=== PATIENT | male | born 1965 | race Caucasian/White ===

== ENCOUNTER 2017-11-06 05:04 | Emergency (ER) | payer SELFPAY ==
[~2017-11-06] VITALS: Ht 180.3 cm; Wt 104.5 kg
[2017-11-06 05:12] VITALS: BP 116/77; PULSE 89; RESP 16; TEMP 97.6; O2SAT 99
[2017-11-06] MEDS ORDERED: AMOX500C PO (05:39)
--- NOTE | 2017-11-06 05:41 | PD ---
HPI Chief Complaint: ENT Complaint Time Seen by Provider: 05:12 Travel History International Travel<30 days: No Contact w/Intl Traveler<30days: No Traveled to known affect area: No History of Present Illness HPI The patient is a 52-year-old male that had a sore throat and was treated with prednisone and azithromycin on , 2 days ago. He did not get a strep screen. He states he has taken a amoxicillin the past successfully and without a problem. He started salivating tonight and took a Dimetapp and this dried him up to where he quit salivating. The patient feels that his throat was closing off previously. He apparently does not have any true allergies, he gets a side effect of vomiting with codeine. He denies any wheezing or shortness of breath. Denies any syncopal or near syncopal spells. PFSH Past Medical History Medical History: Denies Significant Hx Tetanus Vaccination: < 5 Years Influenza Vaccination: No Past Surgical History Surgical History: No Previous Surgery Social History Alcohol Use: Yes (social) Tobacco Use: No Substance Use: No Allergies-Medications (Allergen,Severity, Reaction): Coded Allergies: codeine (Verified Allergy, Unknown, 11/06/17) Review of Systems Except as stated in HPI: all other systems reviewed are Neg Physical Exam Narrative GENERAL: Well-nourished, well-developed patient who appears anxious but in no respiratory distress. His vital signs are normal. His voice is normal. SKIN: Focused skin assessment warm/dry. HEAD: Normocephalic. EYES: No scleral icterus. No injection or drainage. NECK: Supple, trachea midline. No JVD or lymphadenopathy. No stridor is present. No evidence of airway obstruction is present. CARDIOVASCULAR: Regular rate and rhythm without murmurs, gallops, or rubs. RESPIRATORY: Breath sounds equal bilaterally. No accessory muscle use. Lungs clear to auscultation bilaterally. GASTROINTESTINAL: Abdomen soft, non-tender, nondistended. MUSCULOSKELETAL: No cyanosis, or edema. BACK: Nontender without obvious deformity. No CVA tenderness. ENT: The throat is slightly red without exudate or abscess. The tympanic membranes are clear. Data Data Last Documented VS Vital Signs Date Time Temp Pulse Resp B/P (MAP) Pulse Ox O2 Delivery O2 Flow Rate FiO2 11/06/17 05:12 97.6 89 16 116/77 (90) 99 MDM Medical Decision Making Medical Screen Exam Complete: Yes Emergency Medical Condition: Yes Medical Record Reviewed: Yes Differential Diagnosis Allergic reaction, pharyngitis, anxiety, peritonsillar abscess, ear infection Narrative Course The patient appears to have pharyngitis. He does not want to take any more azithromycin or prednisone. He would like to be prescribed amoxicillin which he knows he can take without a problem. Diagnosis Primary Impression: Pharyngitis Additional Instructions: Take the amoxicillin, 1 tablet 3 times daily. It is free at [facility]. You are welcome to discontinue the Zithromax and prednisone. Follow-up with your primary care physician. Med/Other Pt SpecificInfo: Prescription(s) given Scripts Amoxicillin (Amoxicillin) 500 Mg Cap 500 MG PO TID for Infection for 10 Days, CAP 0 Refills Prov: Joey Hughes MD 11/06/17 Disposition: 01 DISCHARGE HOME Condition: Stable Joey Hughes MD Nov 06, 2017 05:41
[2017-11-06] MEDS ORDERED: AMOXICILLIN (TRIHYDRATE) 500 MG CAP PO ONE (05:45)
[2017-11-06 05:56] VITALS: BP 115/52
== END 2017-11-06 06:00 | disposition home or self-care (01) ==
LOC: PHED 05:04
DX: J02.9 Acute pharyngitis, unspecified (principal)
CPT/HCPCS: 99283